=== PATIENT | female | born 1985 | race Native Hawaiian/Other Pacific Islander ===

== ENCOUNTER 2021-08-07 20:47 | Inpatient (IN) | payer OTHER ==
[2021-08-07 22:53] LABS: Hematocrit 35.9 % (30.3-42.9); Hemoglobin 12.3 gm/dl (10.1-14.3); Mean Corpuscular HGB Conc 34 % (30-34); Mean Corpuscular Volume 91 fl (79-97); Platelet Count 255 K/mm3 (140-440); Red Blood Count 3.93 M/mm3 (3.65-5.03); Red Cell Distribution Width 14.3 % (13.2-15.2)
[2021-08-07] MEDS ORDERED: CARBOPROST TROMETHAMINE 250 MCG/1 ML INJ IM PRN (23:37)
[2021-08-07] MEDS ORDERED: MINERAL OIL 30 ML ORAL LIQD PO PRN (23:37)
[2021-08-07] MEDS ORDERED: TERBUTALINE 1 MG/1 ML INJ SUB-Q PRN (23:37)
[2021-08-07] MEDS ORDERED: OXYTOCIN 10 UNIT/1 ML INJ IM PRN (23:37)
[2021-08-07] MEDS ORDERED: LIDOCAINE (2%) 20 MG/1 ML VIAL 20 ML MDV INFILTRATI ONE (23:37)
[2021-08-07] MEDS ORDERED: miSOPROStol 200 MCG TAB PR PRN (23:37)
[2021-08-07] MEDS ORDERED: METHYLERGONOVINE MALEATE 0.2 MG/ML VIAL IM PRN (23:37)
[2021-08-07] MEDS ORDERED: ePHEDrine SULFATE 50 MG/1 ML INJ IV PRN (23:37)
[2021-08-07] MEDS ORDERED: LOPERAMIDE 2 MG CAP PO PRN (23:37)
[2021-08-07] MEDS ORDERED: OXYTOCIN DRIP 30 UNITS/500 ML BAG IV SCH ×2 (23:45)
[2021-08-08] MEDS ORDERED: DINOPROSTONE 10 MG VAG SUPP VG ONE (00:30)
[2021-08-08 01:33] LABS: Hematocrit 35.4 % (30.3-42.9); Hemoglobin 12.1 gm/dl (10.1-14.3); Mean Corpuscular HGB Conc 34 % (30-34); Mean Corpuscular Volume 92 fl (79-97); Platelet Count 234 K/mm3 (140-440); Red Blood Count 3.85 M/mm3 (3.65-5.03); Red Cell Distribution Width 14.5 % (13.2-15.2)
--- NOTE | 2021-08-08 08:36 | History and Physical Report ---
History of Present Illness Date of examination: 08/08/21 Date of admission: 08/07/21 20:47 Chief complaint: IOL secondary to GDM and AMA History of present illness: 35 yo, @ 39.4 wks, initiated care with [facility] at 10.4 wks gestation. has been complicated by circumvallate placenta @ MCI, GDM, LGA (90%tile) and subchorionic hemorrhage (resolved 02/06/21 per [facility]). [facility] for [facility]DM. Reports +FM. Denies VB or LOF. Labs: O+, antibody negative; PAP normal; rubella immune; VDRL non-reactive; urine culture negative; HIV negative; HSV2 negative; Hep C Ab negative; GC/Chlamydia/Trich negative; 1 hr gtt - 141; 3 hr gtt: 99, 183, 157, 103; GBS negative; Past History Past Medical History: diabetes (Gestational) Past Surgical History: breast surgery (5 yrs ago) Family/Genetic History: diabetes Social history: , lives with family, full code. denies: smoking, alcohol abuse, prescription drug abuse, IV drug use - Obstetrical History Expected Date of Delivery: 08/11/21 Actual Gestation: 39 Week(s) 5 Day(s) : 3 Para: 2 Hx # Term Pregnancies: 2 Number of Pregnancies: 0 Spontaneous Abortions: 0 Induced : 0 Number of Living Children: 2 #1 Gender: Female year: 2,[birth year] Birthweight: 3.515 kg Method of Delivery: Vaginal Gestational age at delivery: 40 Complications: none #2 Gender: Female year: 2,[birth year] Birthweight: 3.515 kg Method of Delivery: Vaginal Gestational age at delivery: 40 Complications: none Medications and Allergies Allergies Allergy/AdvReac Type Severity Reaction Status Date / Time No Known Allergies Allergy Unverified 10/06/15 17:39 Home Medications Medication Instructions Recorded Confirmed Last Taken Type Cyclobenzaprine [Flexeril 10 MG 10 mg PO TID PRN #12 tablet 10/06/15 08/09/21 Unknown Rx TAB] Ibuprofen [Motrin 800 MG tab] 800 mg PO Q8HR PRN #30 tablet 10/06/15 08/09/21 Unknown Rx Active Meds: Active Medications Carboprost Tromethamine (Carboprost Tromethamine 250 Mcg/1 Ml Inj) 250 mcg IM ONCE PRN PRN Reason: Uterine Bleeding Ephedrine Sulfate (Ephedrine Sulfate 50 Mg/1 Ml Inj) 10 mg IV Q2M PRN PRN Reason: Hypotension Oxytocin/Sodium Chloride (Pitocin/Ns 30 Unit/500ml) 30 units in 500 mls @ 2 mls/hr IV TITR AL; Protocol Lactated Ringer's (Lactated Ringers) 1,000 mls @ 125 mls/hr IV DIRECT AL Oxytocin/Sodium Chloride (Pitocin/Ns 30 Unit/500ml) 30 units in 500 mls @ 40 mls/hr IV TITR AL; Protocol Stop: 08/09/21 23:59 Loperamide HCl (Loperamide 2 Mg Cap) 2 mg PO ONCE PRN PRN Reason: give with Hemabate Methylergonovine Maleate (Methylergonovine Maleate 0.2 Mg/Ml Vial) 0.2 mg IM ONCE PRN PRN Reason: Uterine Bleeding Mineral Oil (Mineral Oil 30 Ml Oral Liqd) 30 ml PO QHS PRN PRN Reason: Constipation Misoprostol (Misoprostol 200 Mcg Tab) 800 mcg VT ONCE PRN PRN Reason: Uterine Bleeding Oxytocin (Oxytocin 10 Unit/1 Ml Inj) 10 unit IM ONCE PRN PRN Reason: Uterine Bleeding Terbutaline Sulfate (Terbutaline 1 Mg/1 Ml Inj) 0.25 mg SUB-Q ONCE PRN PRN Reason: Hyperstimulation/Hypertonicity Review of Systems All systems: negative - Vital Signs Vital signs: Vital Signs Pulse BP 85 121/74 08/07/21 21:15 08/07/21 21:15 Temp Pulse Resp BP Pulse Ox 97.8 F 82 18 108/61 92 08/08/21 07:13 08/08/21 08:33 08/08/21 07:13 08/08/21 08:14 08/08/21 08:33 - Physical Exam Breasts: Positive: normal Cardiovascular: Regular rate Lungs: Positive: Normal air movement Abdomen: Positive: other (gravid) Genitourinary (Female): Positive: normal external genitalia, normal perenium Uterus: Positive: enlarged (S=D) Extremities: Positive: edema Deep Tendon Reflex Grade: Normal +2 - Obstetrical FHR: category 1 Uterine Contraction Monitor Mode: External Uterine Contraction Frequency (min): 2-7 Uterine Contraction Pattern: Irregular Uterine Tone Measurement Phase: Resting Uterine Contraction Intensity: Mild Results Result Diagrams: 08/08/21 00:45 All other labs normal. Assessment and Plan - Patient Problems (1) Gestational diabetes mellitus (GDM) affecting Current Visit: Yes Status: Acute Plan to address problem: Continue IOL as scheduled Monitory blood glucose as ordered Remove Cervidil after 12 hrs Pain meds as desired per orders Anticipate (2) LGA (large for gestational age) fetus Current Visit: Yes Status: Acute (3) Circumvallate placenta in third trimester Current Visit: Yes Status: Acute
[2021-08-08] MEDS: LACTATED RINGERS 1,000 ML IV SCH ×3 (08:46→18:49)
[2021-08-08] MEDS ORDERED: OXYTOCIN DRIP 30 UNITS/500 ML BAG IV SCH (14:30)
[2021-08-08] MEDS ORDERED: NALOXONE 2 MG/2 ML INJ IV PRN (17:42)
[2021-08-08] MEDS ORDERED: ONDANSETRON 4 MG/2 ML INJ IV PRN ×2 (17:42→19:41)
[2021-08-08] MEDS ORDERED: ePHEDrine SULFATE 50 MG/1 ML INJ IV PRN (17:42)
[2021-08-08] MEDS ORDERED: LACTATED RINGERS 250 ML IV SOLN IV ONE (17:42)
[2021-08-08] MEDS ORDERED: diphenhydrAMINE 50 MG/ML VIAL IV PRN (17:42)
[2021-08-08] MEDS ORDERED: NalbUPHINE 10 MG/1 ML INJ IV PRN (17:42)
--- NOTE | 2021-08-08 17:59 | Anesthesia Consultation ---
Anesthesia Consult and Med Hx Date of service: 08/08/21 - Airway Anesthetic Teeth Evaluation: Good ROM Head & Neck: Adequate Mental/Hyoid Distance: Adequate Mallampati Class: Class III Intubation Access Assessment: Possibly Difficult - Pulmonary Exam CTA: Yes - Cardiac Exam Cardiac Exam: RRR - Pre-Operative Health Status ASA Pre-Surgery Classification: ASA2 Proposed Anesthetic Plan: Epidural - Pulmonary Hx Smoking: No Hx Asthma: No COPD: No Hx Pneumonia: No Hx Sleep Apnea: No - Cardiovascular System Hx Hypertension: No Hx Heart Attack/AMI: No Hx Angina: No - Central Nervous System Hx Seizures: No Hx Psychiatric Problems: No - Gastrointestinal Hx Gastroesophageal Reflux Disease: No - Endocrine Hx Renal Disease: No Hx End Stage Renal Disease: No Hx Liver Disease: No Hx Insulin Dependent Diabetes: No Hx Non-Insulin Dependent Diabetes: No Hx Hypothyroidism: No Hx Hyperthyroidism: No - Hematic Hx Anemia: No Hx Sickle Cell Disease: No - Other Systems Hx Alcohol Use: No
[2021-08-08] MEDS ORDERED: fentaNYL-BUPIV 2 MCG/ML-0.125% 200 MCG/100 ML BAG EPIDURAL SCH (18:00)
--- NOTE | 2021-08-08 18:00 | Progress Note ---
Labor Epidural - Labor Epidural Start Time: 17:50 Stop Time: 18:00 Performed by:: MADDIE DAUGHERTY ([facility]) Procedure: Patient is requesting epidural for labor and pain. H&P, labs were reviewed. Patient IDed, H&P reviewed, all questions and concerns were answered, and consent was signed. Timeout was performed at bedside. Patient in sitting position. Sterile prep and drape was performed. 3ml of 1% lidocaine skin wheal at L[3]- L [4]. 18-gauge [employer] epidural needle was advanced to loss of resistance with air technique 7cm. Negative CSF negative blood. Epidural catheter advanced to [12] centimeters. [negative] Aspiration [negative] test dose. Sterile dressing applied. Patient tolerated procedure.
--- NOTE | 2021-08-08 19:40 | Procedure Note ---
OB Delivery Note - Delivery Date of Delivery: 08/08/21 Surgeon: CAPRICE CHRISTY Estimated blood loss: 300cc - Vaginal Delivery presentation: vertex Delivery position: OA Intrapartum events: uterine atony Delivery induction: cervidil Delivery augmentation: pitocin Delivery monitor: external FHT, external uterine Route of delivery: Delivery placenta: spontaneous Delivery cord: nuchal cord, 3 umbilical vessels Episiotomy: none Delivery laceration: none Anesthesia: epidural Delivery comments: The patient progressed to complete complete +1 and post to deliver a live-born female infant with Apgars of 8 and 9 weight 8 pounds 2 ounces. After delivery of the head a nuchal cord was manually reduced. The shoulders delivered without difficulty. The was placed directly on the mother's abdomen. Cord clamping was delayed. The was bulb suctioned and stimulated. The cord was clamped and cut. The placenta delivered spontaneously intact with a three- vessel cord. The patient experienced uterine atony which was resolved with Cytotec per rectum. Estimated blood loss 300 mL - A at 1 minute: 8 at 5 minutes: 9 Infant Gender: Female (Weight 8 pounds 2 ounces)
[2021-08-08] MEDS ORDERED: MAGNESIUM HYDROXIDE (MOM) ORAL LIQD UDC PO PRN (19:41)
[2021-08-08] MEDS ORDERED: WITCH HAZEL/ GLYCERIN PAD TP PRN (19:41)
[2021-08-08] MEDS ORDERED: diphenhydrAMINE 25 MG CAP PO PRN (19:41)
[2021-08-08] MEDS ORDERED: PROMETHAZINE 25 MG RECT SUPP PR PRN (19:41)
[2021-08-08] MEDS ORDERED: PROMETHAZINE 25 MG TAB PO PRN (19:41)
[2021-08-08] MEDS ORDERED: LANOLIN/ZINC/DIMETHICONE (LANSINOH) 7 GM TP PRN (19:41)
[2021-08-08] MEDS ORDERED: ACETAMINOPHEN 325 MG TAB PO PRN (19:41)
[2021-08-09] MEDS: IBUPROFEN 600 MG TAB PO SCH ×4 (00:40→18:37)
[2021-08-09 09:52] LABS: Hematocrit 31.8 % (30.3-42.9); Hemoglobin 10.7 gm/dl (10.1-14.3)
--- NOTE | 2021-08-09 12:15 | Post Anesthesia Evaluation ---
- Post Anesthesia Evaluation Patient Participated: Yes Airway Patent: Yes Stable Respiratory Function: Yes Nausea/Vomiting: No Temp > 96.8F: Yes Pain Manageable: Yes Adequeate Hydration: Yes Anesthesia Complications: No Block Receding Appropriately: Yes Patient on Ventilator: No
--- NOTE | 2021-08-09 13:40 | Progress Note ---
Assessment and Plan - Patient Problems (1) Status post normal vaginal delivery Current Visit: Yes Status: Acute Plan to address problem: Continue routine PP orders Anticipate d/c home tomorrow if stable Subjective - Subjective Date of service: 08/09/21 Principal diagnosis: S/P ; PPD#1 Interval history: 35 yo, @ 39.4 wks, initiated care with [facility] at 10.4 wks gestation. has been complicated by circumvallate placenta @ MCI, GDM, LGA (90%tile) and subchorionic hemorrhage (resolved 02/06/21 per [facility]). Presents to [facility] for scheduled IOL for GDM. Reports +FM. Denies VB or LOF. Labs: O+, antibody negative; PAP normal; rubella immune; VDRL non-reactive; urine culture negative; HIV negative; HSV2 negative; Hep C Ab negative; GC/Chlamydia/Trich negative; 1 hr gtt - 141; 3 hr gtt: 99, 183, 157, 103; GBS negative; Patient reports: appetite normal, voiding normally, pain well controlled, flatus, ambulating normally Samaria: doing well, bottle feeding Objective - Vital Signs Latest vital signs: Vital Signs Temp Pulse Resp BP BP Pulse Ox Pulse Ox 08/09/21 13:03 98.7 F 74 16 114/79 08/09/21 09:16 97 08/09/21 08:14 98.0 F 87 16 101/52 98 08/09/21 06:03 97 08/09/21 05:45 98.2 F 85 18 95/56 97 08/09/21 04:00 98 08/09/21 02:30 98 08/09/21 02:12 99.1 F 94 H 18 95/47 97 08/08/21 23:40 97 08/08/21 22:00 100 08/08/21 21:50 99.6 F 89 20 123/78 100 08/08/21 21:22 85 94 08/08/21 21:20 81 96 08/08/21 21:17 81 113/71 08/08/21 21:15 82 95 08/08/21 21:10 84 95 08/08/21 21:05 87 97 08/08/21 21:02 86 117/70 08/08/21 21:00 77 96 08/08/21 20:55 88 95 08/08/21 20:50 81 96 08/08/21 20:47 84 119/74 08/08/21 20:45 82 94 08/08/21 20:40 86 96 08/08/21 20:35 85 96 08/08/21 20:32 81 116/70 08/08/21 20:30 85 96 08/08/21 20:25 83 96 08/08/21 20:20 87 96 08/08/21 20:18 85 94 08/08/21 20:17 86 114/62 08/08/21 20:15 86 95 08/08/21 20:10 88 96 08/08/21 20:05 88 96 08/08/21 20:03 98.2 F 93 H 24 94 08/08/21 20:02 87 119/59 08/08/21 20:01 88 121/58 08/08/21 20:00 89 96 08/08/21 19:57 95 08/08/21 19:55 96 H 97 08/08/21 19:53 97 H 94 08/08/21 19:50 89 96 08/08/21 19:48 97 H 113/53 08/08/21 19:45 89 95 08/08/21 19:41 97 H 94 08/08/21 19:40 95 H 95 08/08/21 19:35 94 H 96 08/08/21 19:33 95 H 128/60 91 08/08/21 19:29 104 H 98 08/08/21 19:24 111 H 96 08/08/21 19:23 86 92 08/08/21 19:19 90 96 08/08/21 19:18 95 H 164/83 08/08/21 19:14 94 H 96 08/08/21 19:09 87 95 08/08/21 19:05 83 94 08/08/21 19:04 81 122/63 95 08/08/21 19:00 94 H 92 08/08/21 18:59 81 93 08/08/21 18:54 83 94 08/08/21 18:49 86 94 08/08/21 18:44 86 93 08/08/21 18:43 83 108/58 94 08/08/21 18:39 89 95 08/08/21 18:36 87 94 08/08/21 18:34 88 93 08/08/21 18:32 82 111/58 08/08/21 18:29 86 95 08/08/21 18:28 92 H 93 08/08/21 18:24 89 95 08/08/21 18:22 95 H 94 08/08/21 18:19 92 H 96 08/08/21 18:17 92 H 116/56 08/08/21 18:14 98 H 91 08/08/21 18:13 87 110/58 08/08/21 18:11 92 H 94 08/08/21 18:09 94 H 94 08/08/21 18:06 93 H 123/60 08/08/21 18:04 93 H 117/61 93 08/08/21 18:03 99 H 125/64 08/08/21 18:00 96 H 135/76 08/08/21 17:59 97 H 96 08/08/21 17:58 97 H 132/68 08/08/21 17:57 107 H 86 08/08/21 17:56 98 H 134/65 08/08/21 17:54 64 100 08/08/21 17:52 88 94 08/08/21 17:48 104 H 98 08/08/21 17:43 94 H 93 08/08/21 17:42 84 94 08/08/21 17:38 77 93 08/08/21 17:36 93 H 131/79 08/08/21 17:35 96 H 94 08/08/21 17:33 67 96 08/08/21 17:28 81 96 08/08/21 17:23 71 97 08/08/21 17:18 81 94 08/08/21 17:15 78 94 08/08/21 17:13 81 128/62 96 08/08/21 17:10 66 94 08/08/21 17:08 80 95 08/08/21 16:55 65 93 08/08/21 16:50 100 H 96 08/08/21 16:45 70 95 08/08/21 16:42 85 93 08/08/21 16:40 75 94 08/08/21 16:37 78 122/72 08/08/21 16:36 81 94 08/08/21 16:35 71 95 08/08/21 16:31 86 93 08/08/21 16:30 82 95 08/08/21 16:25 84 94 08/08/21 16:20 87 92 08/08/21 16:19 80 92 08/08/21 16:15 78 96 08/08/21 16:10 77 94 08/08/21 16:08 78 94 08/08/21 16:06 70 127/68 08/08/21 16:05 68 97 08/08/21 16:02 83 94 08/08/21 16:00 77 96 08/08/21 15:56 76 94 08/08/21 15:55 80 94 08/08/21 15:50 97.7 F 75 20 94 08/08/21 15:49 77 94 08/08/21 15:45 74 95 08/08/21 15:42 66 94 08/08/21 15:40 79 96 08/08/21 15:37 77 122/73 92 08/08/21 15:35 85 95 08/08/21 15:30 88 97 08/08/21 15:25 82 95 08/08/21 15:20 74 94 08/08/21 15:15 81 95 08/08/21 15:10 70 94 08/08/21 15:05 79 109/62 97 08/08/21 15:00 88 96 08/08/21 14:55 85 96 08/08/21 14:50 76 97 08/08/21 14:43 80 94 08/08/21 14:41 82 96 08/08/21 14:36 78 92 08/08/21 14:35 73 127/78 08/08/21 14:31 83 96 08/08/21 14:26 77 94 08/08/21 14:21 82 96 08/08/21 14:16 82 96 08/08/21 14:12 81 114/73 08/08/21 14:11 84 96 08/08/21 14:06 75 96 08/08/21 14:01 80 111/67 97 08/08/21 13:56 87 96 08/08/21 13:51 88 95 08/08/21 13:46 84 96 08/08/21 13:41 87 96 Intake and Output 08/08/21 08/09/21 08/09/21 23:59 07:59 15:59 Intake Total 1999 360 200 Output Total 500 800 Balance 1999 -140 -600 Intake: IV 2000 Lactated Ringers 1,000 ml 2000 @ 125 mls/hr IV DIRECT AL Rx#:[id number] Oral 360 200 Output: Urine 500 800 Void 500 800 Other: Total, Intake Amount 120 200 Total, Output Amount 500 800 # Voids Void 1 1 Estimated Blood Loss 400 - Exam Breasts: Present: normal Cardiovascular: Present: Regular rate Lungs: Present: Normal air movement Abdomen: Present: soft Uterus: Present: firm, fundal height at umbilicus Extremities: Present: edema Deep Tendon Reflex Grade: Normal +2
[2021-08-09] MEDS: oxyCODONE /ACETAMINOPHEN 5-325MG TAB PO PRN (14:10)
[2021-08-10] MEDS: IBUPROFEN 600 MG TAB PO SCH ×4 (00:37→18:20)
[2021-08-10] MEDS: oxyCODONE /ACETAMINOPHEN 5-325MG TAB PO PRN (11:42)
[2021-08-10 17:28] VITALS: BP 107/64
--- NOTE | 2021-08-10 18:26 | Discharge Summary ---
Providers - Providers Date of Admission: 08/07/21 20:47 Date of discharge: 08/10/21 Attending physician: CAPRICE CHRISTY Primary care physician: [facility] Hospitalization Reason for admission: active labor Delivery: Episiotomy: none complications: none Discharge diagnosis: IUP at term delivered Hospital course: unremarksable Condition at discharge: Good Disposition: 01 HOME / SELF CARE / HOMELESS Plan - Discharge Medications Prescriptions: Ibuprofen [Motrin] 800 mg PO Q8HR PRN #40 tablet PRN Reason: Pain, Mild (1-3) - Provider Discharge Summary Additional instructions: [] Smoking cessation referral if applicable(refer to patient education folder for contact #) [] Refer to [facility]'s [facility] Booklet Call your doctor immediately for: * Fever > 100.5 * Heavy vaginal bleeding ( >1 pad per hour) * Severe persistent headache * Shortness of breath * Reddened, hot, painful area to leg or breast * Drainage or odor from incision. * Keep incision clean and dry at all times and follow doctor's instructions regarding bathing/showering - Follow up plan Follow up: PRIMARY CARE, [Primary Care Provider] - 7 Days Forms: [facility] Discharge Summary
== END 2021-08-10 21:30 | disposition home or self-care (01) | DRG 775 ==
LOC: LD 20:47 → OB 08-08 21:49
PROVIDERS: ADMIT Obstetrics & Gynecology; ATTEND Obstetrics & Gynecology
PROC: 10E0XZZ Delivery of Products of Conception, External Approach (ICD-10-PCS; principal; 2021-08-08)
PROC: 3E0R3BZ Introduction of Anesthetic Agent into Spinal Canal, Percutaneous Approach (ICD-10-PCS; 2021-08-08)
PROC: 00HU33Z Insertion of Infusion Device into Spinal Canal, Percutaneous Approach (ICD-10-PCS; 2021-08-08)
PROC: 3E0P7VZ Introduction of Hormone into Female Reproductive, Via Natural or Artificial Opening (ICD-10-PCS; 2021-08-08)
DX: O24.429 Gestational diabetes mellitus in childbirth, unspecified control (principal); Z37.0 Single live birth; O43.113 Circumvallate placenta, third trimester; Z3A.39 39 weeks gestation of pregnancy; O09.523 Supervision of elderly multigravida, third trimester; Z20.822 Contact with and (suspected) exposure to COVID-19; O69.81X0 Labor and delivery complicated by cord around neck, without compression, not applicable or unspecified; O62.2 Other uterine inertia
CPT/HCPCS: 36415; 59025; 59200; 82962; 85014; 85018; 85027; 86592; 86850; 86900; 86901; 96365; G0378; J7120; U0003